=== PATIENT | male | born 1940 | race Caucasian/White ===

== ENCOUNTER 2021-08-15 18:49 | Emergency (ER) | payer SELFPAY ==
[~2021-08-15] VITALS: Ht 167.6 cm; Wt 66.7 kg
--- NOTE | 2021-08-15 19:05 | NUR ---
PT [id number] @ 9682 FOR BLURRED VISION. S/P FALL 3 DAYS AGO HEAD INJURY +KO. PT AWAKE A/OX3. TOLERATING R/A WELL WITH NO SOB. CONNECTED PT TO POX AND MONITOR.
--- NOTE | 2021-08-15 21:09 | NUR ---
Patient discharged to home in stable condition. Written and verbal after care instructions given. Patient verbalizes understanding of instruction. PT ambulatory with a steady gait
[2021-08-15 21:12] VITALS: BP 165/77
== END 2021-08-15 21:13 | disposition home or self-care (01) ==
LOC: ER 18:53
DX: S00.03XA Contusion of scalp, initial encounter (principal); I10 Essential (primary) hypertension; I48.91 Unspecified atrial fibrillation; W18.39XA Other fall on same level, initial encounter; Y93.89 Activity, other specified; Y92.89 Other specified places as the place of occurrence of the external cause; Y99.8 Other external cause status
CPT/HCPCS: 70450-TC

== ENCOUNTER 2022-04-10 09:12 | Emergency (ER) | payer OTHER ==
[~2022-04-10] VITALS: Ht 167.6 cm; Wt 63.5 kg
--- NOTE | 2022-04-10 09:30 | NUR ---
Received pt 81 yrs male camse by tere c/o near sycopy by family awake and alert no distress
--- NOTE | 2022-04-10 09:40 | NUR ---
SEEN BY DR Jocelyn CARRILLO
--- NOTE | 2022-04-10 09:45 | NUR ---
INserted angcatheter g 18 on rt ac blood drow and sent to lab
[2022-04-10 09:58] LABS: BASOPHILS % (AUTO) 0.8 % (0.0-2.0); EOSINOPHILS % (AUTO) 1.2 % (0.0-6.0); HEMATOCRIT 41 % (39-51); HEMOGLOBIN 13.5 g/dL (13.5-17.5); LYMPHOCYTES # (AUTO) 1.2 K/uL (0.8-4.8); LYMPHOCYTES % (AUTO) 25.5 % (20.0-44.0); MEAN CORPUSCULAR HGB CONC 33 g/dl (31.0-36.0); MEAN CORPUSCULAR VOLUME 89 fL (80-96); MONOCYTES # (AUTO) 0.4 K/uL (0.1-1.30); NEUTROPHILS # (AUTO) 2.9 K/uL (1.8-8.9); NEUTROPHILS % (AUTO) 64.5 % (43.0-81.0); PLATELET COUNT (AUTO) 219 K/uL (150-450); RED BLOOD CELL COUNT(AUTO) 4.63 MIL/uL (4.5-6.0); WHITE BLOOD COUNT (AUTO) 4.6 K/uL (4.3-11.0)
[2022-04-10 10:15] LABS: ALANINE AMINOTRANSFERASE 17 U/L (12-78); ALBUMIN 3.3 g/dL (3.4-5.0); ALKALINE PHOSPHATASE 74 U/L (46-116); ASPARTATE AMINOTRANSFERASE 19 U/L (15-37); BILIRUBIN,DIRECT 0.2 mg/dL (0.0-0.2); BILIRUBIN,TOTAL 0.8 mg/dL (0.2-1.0); CALCIUM, SERUM 8.5 mg/dL (8.5-10.1); CARBON DIOXIDE 28 mmol/L (21-32); CHLORIDE 105 mmol/L (98-107); CREATININE 1.6 mg/dL (0.6-1.3); GLUCOSE 107 mg/dL (74-106); POTASSIUM 4.4 mmol/L (3.5-5.1); SODIUM SERUM 139 mmol/L (136-145); TOTAL PROTEIN, SERUM 7.3 g/dL (6.4-8.2); UREA NITROGEN, BLOOD 18 mg/dL (7-18)
[2022-04-10 11:20] VITALS: BP 150/60
--- NOTE | 2022-04-10 11:20 | NUR ---
Patient discharged to home in stable condition. Written and verbal after care instructions given. Patient verbalizes understanding of instruction.
== END 2022-04-10 11:22 | disposition home or self-care (01) ==
LOC: ER 10:05
DX: R42 Dizziness and giddiness (principal); I10 Essential (primary) hypertension; I48.91 Unspecified atrial fibrillation
CPT/HCPCS: 36415; 71045-TC; 80048-TC; 80076-TC; 84484-TC; 85025-TC; 85730-TC